=== PATIENT | male | born 1940 | race Caucasian/White ===

== ENCOUNTER 2016-11-11 22:27 | Emergency (ER) | payer BC ==
[~2016-11-11] VITALS: Ht 167.6 cm; Wt 65.8 kg
[2016-11-11 22:35] VITALS: BP 129/87
[2016-11-11 23:02] LABS: Basophils # (auto) 0 uL; Basophils % (auto) 0.3 % (0.0-2.0); Eosinophils # (auto) 0.1 uL; Eosinophils % (auto) 1.3 % (0.0-7.0); Lymphocytes # (auto) 1.5 uL; Lymphocytes % (auto) 21.8 % (10.0-50.0); Mean Corpuscular Hemoglobin 29.2 pg (28.0-32.0); Mean Corpuscular Hgb Conc. 34.1 g/dL (32.0-36.0); Mean Corpuscular Volume 85.7 fL (80.0-100.0); Mean Platelet Volume 8.3 fL (7.4-10.4); Monocytes # (auto) 0.4 uL; Monocytes % (auto) 5.7 % (0.0-12.0); Neutrophils # (auto) 4.9 uL; Neutrophils % (auto) 70.9 % (37.0-80.0); Platelet Count (auto) 227 10^3/uL (140-450); Red Cell Distribution Width 13.1 % (11.6-16.0); White Blood Cell 6.9 10^3/uL (4.4-10.8)
[2016-11-11 23:19] LABS: INR 1.05 (0.9-1.15); Partial Thromboplastin Time 26.8 sec (22.64-33.71); Prothrombin Time 10.8 sec (9.37-12.3)
[2016-11-11 23:25] LABS: Albumin 3.6 g/dL (3.4-5.0); Amylase 64 U/L (25-115); Anion Gap 9 (5-15); Aspartate Aminotransferase 21 U/L (15-37); BUN/Creatinine Ratio 14.3; Blood Urea Nitrogen 13 mg/dL (7-18); Calcium 8.4 mg/dL (8.5-10.1); Carbon Dioxide 27 mmol/L (21-32); Chloride 104 mmol/L (98-107); GFR African American 104 mL/min; GFR Non-African American 86 mL/min; Glucose 130 mg/dL (74-106); Magnesium 2.3 mg/dL (1.6-2.6); Potassium 3.5 mmol/L (3.5-5.1); Sodium 140 mmol/L (136-145)
[2016-11-11 23:30] LABS: Alkaline Phosphatase 48 U/L (45-117); Bilirubin, Total 0.6 mg/dL (0.2-1.0); Total Protein 6.9 g/dL (6.4-8.2)
== END 2016-11-12 03:03 | disposition left against medical advice (07) ==
LOC: EDBD 22:27 → ER 22:29
DX: R10.9 Unspecified abdominal pain (principal); Z53.21 Procedure and treatment not carried out due to patient leaving prior to being seen by health care provider
CPT/HCPCS: 36415; 74176; 80053; 82150; 83690; 83735; 84484; 85025; 85610; 85730

== ENCOUNTER 2019-04-18 18:33 | Emergency (ER) | payer BC ==
[~2019-04-18] VITALS: Ht 167.6 cm; Wt 68.0 kg
[2019-04-18 19:40] LABS: Basophils # (auto) 0 uL; Basophils % (auto) 0.3 % (0.0-2.0); Eosinophils # (auto) 0.1 uL; Eosinophils % (auto) 1.4 % (0.0-7.0); Hematocrit 41.6 % (41.0-53.0); Hemoglobin 14.2 g/dL (13.5-17.5); Lymphocytes # (auto) 1.5 uL; Lymphocytes % (auto) 25.8 % (10.0-50.0); Mean Corpuscular Hemoglobin 29.6 pg (28.0-32.0); Mean Corpuscular Hgb Conc. 34.1 g/dL (32.0-36.0); Mean Corpuscular Volume 86.8 fL (80.0-100.0); Monocytes # (auto) 0.4 uL; Monocytes % (auto) 7.3 % (0.0-12.0); Neutrophils # (auto) 3.7 uL; Neutrophils % (auto) 65.2 % (37.0-80.0); Platelet Count (auto) 210 10^3/uL (140-450); Red Blood Cells 4.79 10^6/uL (4.5-5.90); Red Cell Distribution Width 13.1 % (11.8-14.3); White Blood Cell 5.7 10^3/uL (4.4-10.8)
[2019-04-18 19:46] LABS: Albumin 3.6 g/dL (3.4-5.0); Anion Gap 10 (5-15); Blood Urea Nitrogen 13 mg/dL (7-18); Calcium 8.8 mg/dL (8.5-10.1); Carbon Dioxide 26 mmol/L (21-32); Chloride 107 mmol/L (98-107); Glucose 94 mg/dL (74-106); Potassium 3.9 mmol/L (3.5-5.1); Sodium 143 mmol/L (136-145)
[2019-04-18 19:48] LABS: Alanine Aminotransferase 13 U/L (16-61); Aspartate Aminotransferase 24 U/L (15-37); BUN/Creatinine Ratio 14.3; GFR African American 104 mL/min; GFR Non-African American 86 mL/min
[2019-04-18 19:52] LABS: Alkaline Phosphatase 58 U/L (45-117); Bilirubin, Total 0.5 mg/dL (0.2-1.0); Total Protein 7.1 g/dL (6.4-8.2)
[2019-04-18 21:15] VITALS: BP 130/82
== END 2019-04-18 21:54 | disposition home or self-care (01) ==
LOC: ER 18:35
DX: S20.212A Contusion of left front wall of thorax, initial encounter (principal); X58.XXXA Exposure to other specified factors, initial encounter; Y93.89 Activity, other specified; Y92.89 Other specified places as the place of occurrence of the external cause; Y99.8 Other external cause status
CPT/HCPCS: 36415; 71046; 71250; 80053; 84484; 85025; 93005

== ENCOUNTER 2020-10-12 15:13 | Inpatient (IN) | payer BC ==
[~2020-10-12] VITALS: Ht 185.4 cm; Wt 67.7 kg
[2020-10-12] MEDS ORDERED: SODIUM CHLORIDE 0.9% 1,000 ML IV ONE ×2 (15:30)
[2020-10-12] MEDS ORDERED: LORazepam 2MG/ML-1ML VIAL IM ONE (16:15)
[2020-10-12] MEDS ORDERED: diphenhdrAMINE HCL 50 MG/1 ML VL IM ONE (16:15)
[2020-10-12] MEDS ORDERED: HALOPERIDOL LACTATE 5 MG/ML INJ VIAL IM ONE (16:30)
[2020-10-12 18:38] LABS: Basophils # (auto) 0 10 ^3/uL (0-0.2); Basophils % (auto) 0.2 % (0.0-2.0); Eosinophils # (auto) 0 10 ^3/uL (0-0.8); Eosinophils % (auto) 0.1 % (0.0-7.0); Hematocrit 25.7 % (41.0-53.0); Hemoglobin 8.7 g/dL (13.5-17.5); Lymphocytes # (auto) 0.6 10 ^3/uL (0.4-5.4); Lymphocytes % (auto) 5.1 % (10.0-50.0); Mean Corpuscular Hemoglobin 29.8 pg (28.0-32.0); Mean Corpuscular Hgb Conc. 33.9 g/dL (32.0-36.0); Mean Corpuscular Volume 87.7 fL (80.0-100.0); Monocytes # (auto) 0.6 10 ^3/uL (0-1.3); Monocytes % (auto) 4.9 % (0.0-12.0); Neutrophils # (auto) 10.7 10 ^3/uL (1.6-8.6); Neutrophils % (auto) 89.7 % (37.0-80.0); Platelet Count (auto) 181 10^3/uL (140-450); Red Blood Cells 2.93 10^6/uL (4.5-5.90); White Blood Cell 11.9 10^3/uL (4.4-10.8)
[2020-10-12 18:56] LABS: Albumin 3.6 g/dL (3.4-5.0); Calcium 8.1 mg/dL (8.5-10.1); Potassium 5.4 mmol/L (3.5-5.1)
[2020-10-12 18:59] LABS: BUN/Creatinine Ratio 19.2; Bilirubin, Total 0.3 mg/dL (0.2-1.0); Total Protein 7.3 g/dL (6.4-8.2)
[2020-10-12 21:41] LABS: Urine Bacteria NONE SEEN /hpf (None Seen); Urine Blood TRACE /uL (Negative); Urine Specific Gravity 1.008 (1.001-1.035); Urine WBC 3 /hpf (0 - 3)
[2020-10-12 21:59] LABS: Amphetamine Screen, Urine NEGATIVE (NEGATIVE); Barbiturate Scree,Urine NEGATIVE (NEGATIVE); Benzodiazephine Screen, Urine NEGATIVE (NEGATIVE); Cannabinoid Screen, Urine NEGATIVE (NEGATIVE); Cocaine Screen, Urine NEGATIVE (NEGATIVE); Opiate Scree,Urine NEGATIVE (NEGATIVE); Phencyclidine Screen, Urine NEGATIVE (NEGATIVE)
[2020-10-13] MEDS ORDERED: MORPHINE SULF INJ 2 MG/ML SYRINGE 1ML IV PRN (02:15)
[2020-10-13] MEDS ORDERED: HYDROcodone-ACET 5/325MG TAB PO PRN (02:15)
[2020-10-13] MEDS ORDERED: hydrALAZINE HCL 20 MG/ML VL IV PRN (02:15)
[2020-10-13] MEDS ORDERED: NITROGLYCERIN 0.4 MG SL TAB SL PRN (02:15)
[2020-10-13] MEDS ORDERED: DOCUSATE SOD 100 MG CAP PO PRN (02:15)
[2020-10-13] MEDS ORDERED: ACETAMINOPHEN 325 MG TAB PO PRN (02:15)
[2020-10-13] MEDS ORDERED: LORazepam 2MG/ML-1ML VIAL IV PRN ×2 (02:15→20:15)
[2020-10-13] MEDS ORDERED: SODIUM CHLORIDE 0.9% 1,000 ML IV SCH (02:15)
[2020-10-13] MEDS ORDERED: ONDANSETRON HCL 4 MG/2 ML VIAL IV PRN (02:15)
[2020-10-13] MEDS ORDERED: SODIUM ZIRCONIUM CYCL 10 GM PAK PO ONE (02:15)
[2020-10-13 02:35] LABS: Basophils # (auto) 0 10 ^3/uL (0-0.2); Basophils % (auto) 0.2 % (0.0-2.0); Eosinophils # (auto) 0 10 ^3/uL (0-0.8); Hemoglobin 8.2 g/dL (13.5-17.5); Monocytes # (auto) 0.5 10 ^3/uL (0-1.3); Monocytes % (auto) 5.8 % (0.0-12.0); Neutrophils # (auto) 7.5 10 ^3/uL (1.6-8.6); Red Cell Distribution Width 12.9 % (11.8-14.3)
[2020-10-13 02:36] LABS: Eosinophils % (auto) 0.1 % (0.0-7.0); Hematocrit 23.8 % (41.0-53.0); Lymphocytes # (auto) 0.7 10 ^3/uL (0.4-5.4); Lymphocytes % (auto) 7.7 % (10.0-50.0); Mean Corpuscular Hemoglobin 29.8 pg (28.0-32.0); Mean Corpuscular Hgb Conc. 34.3 g/dL (32.0-36.0); Mean Corpuscular Volume 86.9 fL (80.0-100.0); Neutrophils % (auto) 86.2 % (37.0-80.0); Platelet Count (auto) 173 10^3/uL (140-450); Red Blood Cells 2.74 10^6/uL (4.5-5.90); White Blood Cell 8.7 10^3/uL (4.4-10.8)
[2020-10-13 02:54] LABS: Albumin 3.2 g/dL (3.4-5.0); BUN/Creatinine Ratio 17.4; Potassium 4.8 mmol/L (3.5-5.1)
[2020-10-13 02:57] LABS: Bilirubin, Total 0.5 mg/dL (0.2-1.0); Total Protein 6.3 g/dL (6.4-8.2)
[2020-10-13 03:14] LABS: % Iron Saturation 8.2 % (20-55)
[2020-10-13 03:56] LABS: Folate (Folic Acid) > 24.00 ng/mL (5.38-24)
[2020-10-13] MEDS: MULTIPLE VITAMIN TAB PO SCH (08:00)
[2020-10-13] MEDS: HEPARIN SODIUM (PORCINE) 5000 UNITS/ML 1ML VIAL SC SCH ×2 (08:03→22:00)
[2020-10-13] MEDS ORDERED: ENOXAPARIN SOD 30 MG/0.3 ML SYRINGE SC SCH (10:00)
[2020-10-13] MEDS ORDERED: FAMOTIDINE (10MG/ML) 2ML VL IV SCH (10:00)
[2020-10-13] MEDS ORDERED: ASCORBIC ACID 500 MG TAB PO SCH (10:00)
[2020-10-13] MEDS ORDERED: LOSA-69 PO (12:58)
[2020-10-13 13:35] LABS: Creatinine, Urine 47 mg/dL (30.0-125.0); Protein, Urine 11.5 mg/dL (0.0-11.9); Sodium Urine 49 mmol/L (40-220)
[2020-10-13 13:41] LABS: Phosphorus 4.2 mg/dL (2.5-4.90)
[2020-10-13 16:00] VITALS: BP 139/95
[2020-10-13] MEDS: SODIUM BICARBONATE 50ML VIAL 50 ML in SOD CHL 0.45% 1,000 ML IV SCH (18:51)
[2020-10-13 22:27] VITALS: BP 148/77
[2020-10-14] MEDS: SODIUM BICARBONATE 50ML VIAL 50 ML in SOD CHL 0.45% 1,000 ML IV SCH ×2 (01:53→15:50)
[2020-10-14 05:00] VITALS: BP 137/58
[2020-10-14 06:06] LABS: Basophils # (auto) 0 10 ^3/uL (0-0.2); Eosinophils # (auto) 0.1 10 ^3/uL (0-0.8); Hemoglobin 7.7 g/dL (13.5-17.5); Lymphocytes # (auto) 0.9 10 ^3/uL (0.4-5.4); Mean Corpuscular Volume 86.8 fL (80.0-100.0); Monocytes # (auto) 0.3 10 ^3/uL (0-1.3)
[2020-10-14 06:08] LABS: Basophils % (auto) 0.2 % (0.0-2.0); Eosinophils % (auto) 1.8 % (0.0-7.0); Hematocrit 22.2 % (41.0-53.0); Lymphocytes % (auto) 17.9 % (10.0-50.0); Mean Corpuscular Hemoglobin 30.1 pg (28.0-32.0); Mean Corpuscular Hgb Conc. 34.6 g/dL (32.0-36.0); Monocytes % (auto) 6.3 % (0.0-12.0); Neutrophils # (auto) 3.7 10 ^3/uL (1.6-8.6); Neutrophils % (auto) 73.8 % (37.0-80.0); Nucleated Red Blood Cells % 0.1 %; Platelet Count (auto) 145 10^3/uL (140-450); Red Blood Cells 2.56 10^6/uL (4.5-5.90); Red Cell Distribution Width 12.8 % (11.8-14.3)
[2020-10-14 06:12] LABS: Albumin 2.9 g/dL (3.4-5.0); Calcium 7.7 mg/dL (8.5-10.1); Potassium 4.4 mmol/L (3.5-5.1)
[2020-10-14 06:15] LABS: BUN/Creatinine Ratio 16.8; Bilirubin, Total 0.6 mg/dL (0.2-1.0); Total Protein 6.1 g/dL (6.4-8.2)
[2020-10-14 06:44] LABS: Urine Bacteria FEW /hpf (None Seen); Urine Blood Negative /uL (Negative); Urine Specific Gravity 1.007 (1.001-1.035); Urine WBC 1 /hpf (0 - 3)
[2020-10-14 07:30] VITALS: BP 139/65
[2020-10-14] MEDS: HEPARIN SODIUM (PORCINE) 5000 UNITS/ML 1ML VIAL SC SCH ×2 (10:00→22:00)
[2020-10-14] MEDS: MULTIPLE VITAMIN TAB PO SCH (10:00)
[2020-10-14] MEDS ORDERED: amLODIPine BESYLATE 5 MG TAB PO ONE (12:00)
[2020-10-14 16:00] VITALS: BP 144/77
[2020-10-14] MEDS: levETIRAcetam 500 MG TAB PO SCH (22:00)
[2020-10-15] MEDS: SODIUM BICARBONATE 50ML VIAL 50 ML in SOD CHL 0.45% 1,000 ML IV SCH (04:09)
[2020-10-15 05:00] VITALS: BP 146/69
[2020-10-15 07:28] LABS: Calcium 7.7 mg/dL (8.5-10.1); Potassium 4.4 mmol/L (3.5-5.1)
[2020-10-15 07:30] LABS: BUN/Creatinine Ratio 16.2
[2020-10-15 08:00] VITALS: BP 151/75
[2020-10-15] MEDS ORDERED: AMLO-496 PO (09:36)
[2020-10-15] MEDS ORDERED: KEP500T PO (09:36)
[2020-10-15] MEDS: MULTIPLE VITAMIN TAB PO SCH (09:43)
[2020-10-15] MEDS: levETIRAcetam 500 MG TAB PO SCH (09:43)
[2020-10-15] MEDS: HEPARIN SODIUM (PORCINE) 5000 UNITS/ML 1ML VIAL SC SCH (09:46)
[2020-10-15] MEDS ORDERED: amLODIPine BESYLATE 5 MG TAB PO SCH (10:00)
[2020-10-15 10:59] VITALS: BP 151/75
[2020-10-15] MEDS ORDERED: SODIUM CHLORIDE 0.9% 1,000 ML IV SCH (11:45)
== END 2020-10-15 14:08 | disposition home or self-care (01) | DRG 100 ==
LOC: ER 15:13 → EDBD 15:13 → TELE 10-13 02:02 → TELE-CENTR 10-13 11:09
PROVIDERS: ADMIT Nurse Practitioner Family; ATTEND Hospitalist
DX: G40.909 Epilepsy, unspecified, not intractable, without status epilepticus (principal); N17.0 Acute kidney failure with tubular necrosis; E87.2 Acidosis; D72.829 Elevated white blood cell count, unspecified; D64.9 Anemia, unspecified; E11.22 Type 2 diabetes mellitus with diabetic chronic kidney disease; F17.200 Nicotine dependence, unspecified, uncomplicated; N40.0 Benign prostatic hyperplasia without lower urinary tract symptoms; M19.90 Unspecified osteoarthritis, unspecified site; Z20.822 Contact with and (suspected) exposure to COVID-19; I13.10 Hypertensive heart and chronic kidney disease without heart failure, with stage 1 through stage 4 chronic kidney disease, or unspecified chronic kidney disease; Z79.899 Other long term (current) drug therapy; N18.32 Chronic kidney disease, stage 3b
CPT/HCPCS: 36415; 70450; 71045; 80048; 80053; 80307; 81001; 82550; 82570; 82607; 82746; 83036; 83540; 83550; 84100; 84156; 84300; 85025; 87426; 96361; 96365; 96372; G0378; J3490; J7060

== ENCOUNTER 2021-12-16 22:29 | Emergency (ER) | payer BC, MEDICAID ==
[~2021-12-16] VITALS: Ht 167.6 cm; Wt 77.1 kg
[~2021-12-16 22:29] MED LIST: AMLO-496 PO; KEP500T PO
[2021-12-16 23:43] LABS: Basophils # (auto) 0.1 10 ^3/uL (0-0.2); Basophils % (auto) 0.9 % (0.0-2.0); Eosinophils # (auto) 0.2 10 ^3/uL (0-0.8); Eosinophils % (auto) 1.7 % (0.0-7.0); Hematocrit 45.1 % (41.0-53.0); Hemoglobin 15.6 g/dL (13.5-17.5); Lymphocytes # (auto) 3.6 10 ^3/uL (0.4-5.4); Lymphocytes % (auto) 36.7 % (10.0-50.0); Mean Corpuscular Hemoglobin 32.5 pg (28.0-32.0); Mean Corpuscular Hgb Conc. 34.5 g/dL (32.0-36.0); Mean Corpuscular Volume 94.2 fL (80.0-100.0); Monocytes # (auto) 0.7 10 ^3/uL (0-1.3); Monocytes % (auto) 7.6 % (0.0-12.0); Neutrophils # (auto) 5.2 10 ^3/uL (1.6-8.6); Neutrophils % (auto) 53.1 % (37.0-80.0); Nucleated Red Blood Cells % 0.1 %; Red Blood Cells 4.79 10^6/uL (4.5-5.90); Red Cell Distribution Width 13.5 % (11.8-14.3); White Blood Cell 9.8 10^3/uL (4.4-10.8)
[2021-12-17 00:06] LABS: Albumin 3.7 g/dL (3.4-5.0); BUN/Creatinine Ratio 11.5; Calcium 9.1 mg/dL (8.5-10.1); Magnesium 2.2 mg/dL (1.6-2.6); Potassium 4.1 mmol/L (3.5-5.1)
[2021-12-17 00:09] LABS: Bilirubin, Total 0.5 mg/dL (0.2-1.0); Total Protein 7.2 g/dL (6.4-8.2)
[2021-12-17] MEDS ORDERED: ACETAMINOPHEN 325 MG TAB PO ONE (05:00)
[2021-12-17] MEDS ORDERED: LEVO-28 PO (07:40)
[2021-12-17 08:10] LABS: Urine Bacteria FEW /hpf (None Seen); Urine Blood Negative /uL (Negative); Urine Mucus FEW (None Seen); Urine Specific Gravity 1.033 (1.001-1.035); Urine WBC <1 /hpf (0 - 3)
[2021-12-17 09:52] VITALS: BP 121/71
== END 2021-12-17 10:32 | disposition home or self-care (01) ==
LOC: ER 22:29
DX: R10.12 Left upper quadrant pain (principal); J40 Bronchitis, not specified as acute or chronic
CPT/HCPCS: 36415; 71045; 71250; 80053; 81001; 83735; 83880; 84484; 85025; 93005